=== PATIENT | male | born 1940 | race Two or more races ===

== ENCOUNTER 2025-05-09 12:55 | Inpatient (IN) | payer OTHER ==
[~2025-05-09] VITALS: Ht 165.1 cm; Wt 72.6 kg
[2025-05-09] MEDS ORDERED: NAMENDA XR7 MG (13:21)
[2025-05-09] MEDS ORDERED: COZAAR50 MG (13:21)
[2025-05-09] MEDS ORDERED: ARICEPT5 MG (13:21)
[2025-05-09] MEDS ORDERED: SIMVASTATIN5 MG (13:22)
[2025-05-09] MEDS ORDERED: METFORMIN HCL500 M3 (13:22)
--- NOTE | 2025-05-09 13:22 | NUR ---
SE RECIBE PTE ALERTA, ORIENTADO EN PERSONA EN AMBULANCIA. REFIERE QUE ESTABA CAMINANDO EN LA ACERA, SE TROPEZO Y SE STONEY DEL LADO DERECHO.
[2025-05-09] MEDS ORDERED: SODIUM CHLORIDE 0.45 % 1,000 ML IV STA (13:42)
[2025-05-09 14:05] LABS: BASO % 0.5 % (0.1-1.2); EOS # 0.14 (0.04-0.54); EOS % 1.0 % (0.7-7.0); LYMPH # 2.68 (1.18-3.74); LYMPH % 19.8 % (19.3-53.1); MEAN PLATELET VOLUME 10.00 fl (9.4-12.4); MONO # 0.72 (0.24-0.82); MONO % 5.3 % (4.7-12.5); NEUT # 9.85 (1.56-6.13); NEUT % 72.8 % (34.0-71.1); RED CELL DISTRIBUTION WIDTH 13.7 % (11.6-14.4)
--- NOTE | 2025-05-09 14:05 | NUR ---
SE ORIENTA PTE SOBRE TX A SEGUIR, EL MISMO REFIERE ENTENDER. SE FREDY MUESTRAS DE LAB, SE CANALIZA Y SE ADMINISTRA MED ARJUN ORDEN MEDICA
[2025-05-09 14:30] LABS: INR 0.99
[2025-05-09 14:34] LABS: ALT/SGPT 15.0 U/L (12-78); AST/SGOT 9.0 U/L (15-37); BILIRUBIN TOTAL 0.33 mg/dL (0.3-1.2); BUN CREA RATIO 16.0 (7.0-25.0); CREATININE SERUM 1.4 mg/dL (0.70-1.30); GFR 48.16; GLOBULINA 4.5 G/DL (2.4-3.5); OSMOLALITY SERUM 287.0 MOSM/KG (275-295)
[2025-05-09 14:36] LABS: GLUCOSE FASTING 211.0 mg/dL (65-100)
[2025-05-09] MEDS ORDERED: 0.9 % SODIUM CHLORIDE 1,000 ML IV SCH (20:30)
[2025-05-09] MEDS ORDERED: ACETAMINOPHEN 500 MG GEL..CAP PO PRN (20:30)
[2025-05-09] MEDS ORDERED: INSULIN LISPRO 1,000 UNIT/10 ML UNITS SUBCUTANEO PRN (20:30)
[2025-05-09] MEDS ORDERED: DEXTROSE 50 % IN WATER 0.5 G/ML DISP.SYRIN IV PRN (20:30)
[2025-05-10 02:57] LABS: COVID-19 AG NEGATIVE (NEGATIVE)
[2025-05-10 06:45] LABS: URINE APPEARANCE Clear; URINE BILIRRUBIN Negative (NEGATIVE); URINE BLOOD Negative; URINE COLOR Yellow; URINE KETONE Trace (NEGATIVE); URINE LEUKOCYTE Trace; URINE NITRATE Negative; URINE PROTEIN 30 (NEGATIVE); URINE UROBILINOGEN 0.2 E.U./dl
[2025-05-10 06:49] LABS: URINE BACTERIA 77.7 uL (0.0-1933); URINE EPITHELIAL CELLS 2.1 uL (0.0-38.8); URINE WBC 25.1 uL (0.0-23.2)
[2025-05-10 06:52] LABS: URINE CAST 0.14 uL (0.0-1.40); URINE GLUCOSE >=1000 MG/DL (NEGATIVE); URINE RBC 1.1 uL (0.0-20.8)
[2025-05-10 07:47] LABS: COL EPI 87 SECONDS (82-175)
[2025-05-10 08:00] VITALS: BP 115/63; O2SAT 98
[2025-05-10] MEDS ORDERED: LOSARTAN POTASSIUM 50 MG TABLET PO SCH (09:00)
[2025-05-10] MEDS ORDERED: MEMANTINE HCL 10 MG TABLET PO SCH (09:00)
[2025-05-10] MEDS ORDERED: CEFAZOLIN SODIUM 1,000 MG VIAL IV SCH (11:30)
[2025-05-10] MEDS ORDERED: TRANEXAMIC ACID 100MG/1ML (1000MG) AMPUL ONE (12:55)
[2025-05-10] MEDS ORDERED: CEFAZOLIN SODIUM 1,000 MG VIAL ONE (12:55)
[2025-05-10] MEDS ORDERED: CHLORHEXIDINE GLUCONATE 120 ML BOTTLE TOP ONE (15:45)
[2025-05-10] MEDS ORDERED: DONEPEZIL HCL 5 MG TABLET PO SCH (17:00)
[2025-05-10] MEDS ORDERED: SIMVASTATIN 10 MG TABLET PO SCH (17:00)
[2025-05-10] MEDS ORDERED: PANTOPRAZOLE SODIUM 40 MG TABLET.DR PO SCH (17:36)
[2025-05-10] MEDS ORDERED: ONDANSETRON 4 MG TAB.RAPDIS PO PRN (17:45)
[2025-05-10] MEDS ORDERED: PROMETHAZINE HCL 50 MG/ML AMPUL IM PRN (17:45)
[2025-05-10] MEDS ORDERED: ONDANSETRON HCL 2 MG/ML VIAL IV PRN (17:45)
[2025-05-10] MEDS ORDERED: TRAMADOL HCL 50 MG TABLET PO PRN (17:45)
[2025-05-10] MEDS ORDERED: SODIUM CHLORIDE 0.45 % 1,000 ML IV SCH (17:45)
[2025-05-10 22:08] VITALS: BP 134/73; O2SAT 95
[2025-05-11] VITALS: BP 138/65; O2SAT 95
[2025-05-11] MEDS ORDERED: CEFAZOLIN SODIUM 1,000 MG VIAL IV SCH (01:00)
[2025-05-11 08:00] VITALS: BP 129/67; O2SAT 94
[2025-05-11] MEDS ORDERED: RIVAROXABAN 10 MG TAB PO SCH (09:00)
[2025-05-11 11:42] LABS: BASO % 0.4 % (0.1-1.2); EOS # 0.08 (0.04-0.54); EOS % 0.5 % (0.7-7.0); LYMPH # 2.16 (1.18-3.74); LYMPH % 14.4 % (19.3-53.1); MEAN PLATELET VOLUME 10.60 fl (9.4-12.4); MONO # 0.94 (0.24-0.82); MONO % 6.3 % (4.7-12.5); NEUT # 11.48 (1.56-6.13); NEUT % 76.5 % (34.0-71.1); RED CELL DISTRIBUTION WIDTH 13.4 % (11.6-14.4)
[2025-05-11 12:32] LABS: BUN CREA RATIO 20.0 (7.0-25.0); CREATININE SERUM 1.25 mg/dL (0.70-1.30); GFR 54.89; OSMOLALITY SERUM 284.0 MOSM/KG (275-295)
[2025-05-11 12:33] LABS: GLUCOSE FASTING 203.0 mg/dL (65-100)
[2025-05-11 17:00] VITALS: BP 127/73; O2SAT 97
[2025-05-12 00:51] VITALS: BP 129/81; O2SAT 96
[2025-05-12 08:00] VITALS: BP 146/81; O2SAT 93
[2025-05-12] MEDS ORDERED: SENNA/DOCUSATE SODIUM 1 TAB TABLET PO SCH (09:00)
[2025-05-12] MEDS ORDERED: SOD FERRIC GLUC COMPLX/SUCROSE 62.5 MG/5 ML AMPUL IV ONE (12:00)
[2025-05-12 16:00] VITALS: BP 117/71; O2SAT 94
[2025-05-13 01:10] VITALS: BP 109/70; O2SAT 95
== END 2025-05-13 12:54 | disposition home or self-care (01) | DRG 482 ==
LOC: ER 12:55 → SURH 21:21 → SEC-K 21:21 → SURH 05-10 02:15
PROVIDERS: General Practice; Orthopaedic Surgery; ADMIT Internal Medicine; ATTEND Internal Medicine
PROC: BQ2RZZZ Computerized Tomography (CT Scan) of Right Lower Extremity (ICD-10-PCS; 2025-05-09)
PROC: BW2GZZZ Computerized Tomography (CT Scan) of Pelvic Region (ICD-10-PCS; 2025-05-09)
PROC: 0QS636Z Reposition Right Upper Femur with Intramedullary Internal Fixation Device, Percutaneous Approach (ICD-10-PCS; principal; 2025-05-10 19:45)
DX: S72.141A Displaced intertrochanteric fracture of right femur, initial encounter for closed fracture (principal)

== ENCOUNTER 2025-05-13 14:08 | Inpatient (IN) | payer OTHER ==
[~2025-05-13] VITALS: Ht 170.2 cm; Wt 68.0 kg
[~2025-05-13 14:08] MED LIST: ARICEPT5 MG; COZAAR50 MG; METFORMIN HCL500 M3; NAMENDA XR7 MG; SIMVASTATIN5 MG
[2025-05-13] MEDS ORDERED: FAMOTIDINE/PF 20 MG in 0.9 % SODIUM CHLORIDE 8 ML IV PUSH ONE (15:30)
[2025-05-13] MEDS ORDERED: 0.9 % SODIUM CHLORIDE 1,000 ML IV SCH ×2 (15:30→20:30)
[2025-05-13] MEDS ORDERED: METHYLPREDNISOLONE SOD SUCC 125 MG VIAL IV ONE (15:30)
[2025-05-13] MEDS ORDERED: LEVALBUTEROL HCL 1.25 MG/3 ML SOLUTION IH SCH (15:30)
[2025-05-13] MEDS ORDERED: ACETAMINOPHEN 500 MG GEL..CAP PO ONE ×2 (15:30→15:52)
[2025-05-13] MEDS ORDERED: IPRATROPIUM BROMIDE 0.5 MG/2.5 ML AMPUL.NEB IH SCH (15:30)
[2025-05-13] MEDS ORDERED: FAMOTIDINE/PF 20 MG/2 ML VIAL ONE (15:52)
[2025-05-13] MEDS ORDERED: METHYLPREDNISOLONE SOD SUCC 125 MG VIAL ONE (15:52)
[2025-05-13 16:31] LABS: BASO % 0.7 % (0.1-1.2); EOS # 0.35 (0.04-0.54); EOS % 3.1 % (0.7-7.0); LYMPH # 2.22 (1.18-3.74); LYMPH % 19.5 % (19.3-53.1); MEAN PLATELET VOLUME 10.70 fl (9.4-12.4); MONO # 1.04 (0.24-0.82); MONO % 9.1 % (4.7-12.5); NEUT # 7.68 (1.56-6.13); NEUT % 67.3 % (34.0-71.1); RED CELL DISTRIBUTION WIDTH 13.3 % (11.6-14.4)
[2025-05-13 16:50] LABS: AST/SGOT 22 U/L (15-37); BILIRUBIN TOTAL 0.52 mg/dL (0.3-1.2); BUN CREA RATIO 20 (7.0-25.0); CREATININE SERUM 1.31 mg/dL (0.70-1.30); GFR 52.00; GLOBULINA 5.4 G/DL (2.4-3.5); GLUCOSE FASTING 115 mg/dL (65-100); OSMOLALITY SERUM 281 MOSM/KG (275-295)
[2025-05-13 16:54] LABS: ALT/SGPT < 6 U/L (12-78)
[2025-05-13] MEDS ORDERED: IPRATROPIUM BROMIDE 0.5 MG/2.5 ML AMPUL.NEB IH ONE (16:59)
[2025-05-13] MEDS ORDERED: LEVALBUTEROL HCL 0.63 MG/3 ML SOLUTION IH ONE (16:59)
[2025-05-13 18:13] LABS: INR 1.09
[2025-05-13 18:32] LABS: URINE APPEARANCE Clear; URINE BILIRRUBIN Negative (NEGATIVE); URINE BLOOD Trace; URINE COLOR Yellow; URINE KETONE Trace (NEGATIVE); URINE LEUKOCYTE Negative; URINE NITRATE Negative; URINE UROBILINOGEN 0.2 E.U./dl
[2025-05-13 18:36] LABS: URINE BACTERIA 18.3 uL (0.0-1933); URINE EPITHELIAL CELLS 35.8 uL (0.0-38.8); URINE RBC 3.8 uL (0.0-20.8); URINE WBC 65.7 uL (0.0-23.2)
[2025-05-13 19:13] LABS: URINE CAST 0.56 uL (0.0-1.40); URINE GLUCOSE >=1000 MG/DL (NEGATIVE); URINE PROTEIN 100 (NEGATIVE)
[2025-05-13 19:18] LABS: TYPE CELLS SQUAMOUS
[2025-05-13 19:19] LABS: URINE YEAST RARE /hpf
[2025-05-13] MEDS ORDERED: INSULIN LISPRO 1,000 UNIT/10 ML UNITS SUBCUTANEO PRN (20:15)
[2025-05-13] MEDS ORDERED: DEXTROSE 50 % IN WATER 0.5 G/ML DISP.SYRIN IV PRN (20:15)
[2025-05-13] MEDS ORDERED: METHYLPREDNISOLONE SOD SUCC 40 MG VIAL IV SCH (20:16)
[2025-05-13] MEDS ORDERED: LEVALBUTEROL HCL 0.63 MG/3 ML SOLUTION IH SCH (21:00)
[2025-05-14 00:50] VITALS: BP 105/61; O2SAT 97
[2025-05-14 00:54] VITALS: BP 105/61
[2025-05-14] MEDS ORDERED: IPRATROPIUM BROMIDE 0.5 MG/2.5 ML AMPUL.NEB IH SCH (01:00)
[2025-05-14 04:20] VITALS: BP 95/59; O2SAT 92
[2025-05-14 07:44] LABS: BUN CREA RATIO 24.0 (7.0-25.0); CREATININE SERUM 1.61 mg/dL (0.70-1.30); GFR 40.99; OSMOLALITY SERUM 304.0 MOSM/KG (275-295)
[2025-05-14 07:58] LABS: GLUCOSE FASTING 437.0 mg/dL (65-100)
[2025-05-14 08:33] VITALS: BP 99/59; O2SAT 95
[2025-05-14 14:20] LABS: BASO % 0.2 % (0.1-1.2); EOS # 0.00 (0.04-0.54); EOS % 0.0 % (0.7-7.0); LYMPH # 0.72 (1.18-3.74); LYMPH % 6.8 % (19.3-53.1); MEAN PLATELET VOLUME 11.60 fl (9.4-12.4); MONO # 0.31 (0.24-0.82); MONO % 2.9 % (4.7-12.5); NEUT # 9.43 (1.56-6.13); NEUT % 89.6 % (34.0-71.1); RED CELL DISTRIBUTION WIDTH 13.5 % (11.6-14.4)
[2025-05-14] MEDS ORDERED: ENOXAPARIN SODIUM 40 MG/0.4 ML SYRINGE SUBCUTANEO SCH (17:00)
[2025-05-14 17:25] VITALS: BP 104/62; O2SAT 95
[2025-05-15 01:34] VITALS: BP 108/63; O2SAT 96
[2025-05-15 08:23] VITALS: BP 112/67; O2SAT 99
[2025-05-15 16:30] VITALS: BP 97/59; O2SAT 95
[2025-05-16 02:15] VITALS: BP 108/78; O2SAT 92
[2025-05-16 08:48] VITALS: BP 114/70; O2SAT 97
[2025-05-16 16:33] VITALS: BP 107/76; O2SAT 95
[2025-05-17 00:23] VITALS: BP 106/60; O2SAT 97
[2025-05-17 07:30] VITALS: BP 127/60; O2SAT 98
[2025-05-17 15:59] VITALS: BP 116/68; O2SAT 99
[2025-05-18 00:49] VITALS: BP 110/71; O2SAT 95
[2025-05-18 08:00] VITALS: BP 119/75; O2SAT 100
[2025-05-19] VITALS: BP 100/63; O2SAT 96
[2025-05-19 08:00] VITALS: BP 130/79; O2SAT 99
[2025-05-19] MEDS ORDERED: LACTULOSE 20 G/30 ML BLIST.PACK PO STA (12:37)
[2025-05-19 15:59] VITALS: BP 110/67; O2SAT 97
== END 2025-05-19 18:11 | disposition home or self-care (01) | DRG 191 ==
LOC: ER 14:08 → SURH 20:21 → SEC-K 20:21 → SURH 23:35
PROVIDERS: General Practice; ADMIT Internal Medicine; ATTEND Internal Medicine
PROC: CB121ZZ Planar Nuclear Medicine Imaging of Lungs and Bronchi using Technetium 99m (Tc-99m) (ICD-10-PCS; principal; 2025-05-14)
DX: J44.1 Chronic obstructive pulmonary disease with (acute) exacerbation (principal); J81.1 Chronic pulmonary edema; R09.02 Hypoxemia; I10 Essential (primary) hypertension; E11.9 Type 2 diabetes mellitus without complications; Z79.4 Long term (current) use of insulin
CPT/HCPCS: 78582; A9539; A9567; A9540